=== PATIENT | male | born 1985 | race African-American/Black ===

== ENCOUNTER 2020-07-05 10:44 | Emergency (ER) | payer OTHER, SELFPAY ==
--- NOTE | ~2020-07-05 | XR_ITS ---
EXAMINATION: XR thoracic spine 3V DATE: 07/05/2020 13:21 INDICATION: Back pain TECHNIQUE: AP, lateral and lateral swimmer's views of the thoracic spine were obtained. COMPARISON: None. FINDINGS: There is no fracture, dislocation, or subluxation. The vertebral body heights, alignment, a nd intervertebral disc spaces are normal. The paravertebral soft tissues are unremarkable. IMPRESSION: 1. No acute osseous abnormality. Reviewed, dictated and finalized at location A. [facility]
[2020-07-05 10:54] VITALS: BP 164/91; PULSE 76; RESP 16; TEMP 37.1; O2SAT 100
[2020-07-05] MEDS: KETOROLAC 30 MG/ML VIAL (*BKC) IM (13:29)
--- NOTE | 2020-07-05 13:55 | ED.GENADULT ---
HPI - General Adult General Chief complaint: Neck Pain/Injury Stated complaint: neck pain Time Seen by Provider: 07/05/20 11:29 Source: patient Mode of arrival: ambulatory Limitations: no limitations History of Present Illness HPI narrative: Patient presents with intensified upper thoracic back pain that has been intermittent since January 2020. Patient states he has not been evaluated by his primary care regarding the discomfort as it has not been as intense as it is today. Patient denies any initial injury that he can recall other than feeling as if he slept wrong 1 day. Patient states at times the discomfort resolves whenever he presents. Patient reports feeling tightness and cramping from his upper thoracic area down to his shoulder blades. He denies any loss of strength or range of motion in his extremities. He denies any loss range of motion to his neck, fever, chills, nausea, vomiting or any other symptoms. Related Data Allergies Allergy/AdvReac Type Severity Reaction Status Date / Time No Known Allergies Allergy Verified 07/05/20 11:13 Review of Systems Review of Systems: Narrative: CONSTITUTIONAL: Denies fever, chills, or sweats. EYES: Denies visual changes, redness, or discharge. ENT: Denies rhinorrhea, congestion, sore throat, or otalgia. CARDIOVASCULAR: Denies chest pain, palpitations, or edema. RESPIRATORY: Denies cough or dyspnea. GASTROINTESTINAL: Denies abdominal pain, nausea, vomiting, or diarrhea. GENITOURINARY: Denies dysuria or hematuria. SKIN: Denies rash or itching. MUSCULOSKELETAL: Reports thoracic pain denies joint pain, or myalgia. NEUROLOGIC: Denies headache, numbness, dizziness, or weakness. PSYCHIATRIC: Denies anxiety or depression. [facility] Social History Social History Gender identity (if verbalized by the patient): Male Exam Narrative: Exam Narrative: GENERAL: Well-appearing, well-nourished, and in no acute distress. HEAD: Normocephalic, atraumatic. EYES: PERRLA and EOMI. NECK: Supple. No adenopathy or masses. Motion intact without rigidity. CHEST: Clear to auscultation. No respiratory distress. No wheezes rales or rhonchi HEART: Regular rate and rhythm. Normal peripheral pulses. BACK: No vertebral point tenderness to cervical spine. There is some diffuse tenderness over thoracic area which extends to the parathoracic muscles which Go over the bilateral scapulas. EXTREMITIES: Normal range of motion. No edema. Sensation intact. SKIN: Warm, dry, no rash. NEURO: No focal deficits. Alert and oriented x3. PSYCH: Normal mood and affect. Course Vital Signs Vital signs: Vital Signs Temperature 98.7 F 07/05/20 10:54 Pulse Rate 76 07/05/20 10:54 Respiratory Rate 16 07/05/20 10:54 Blood Pressure 164/91 H 07/05/20 10:54 Pulse Oximetry 100 07/05/20 10:54 Temperature 98.7 F 07/05/20 10:54 Pulse Rate 76 07/05/20 10:54 Respiratory Rate 16 07/05/20 10:54 Blood Pressure 164/91 H 07/05/20 10:54 Pulse Oximetry 100 07/05/20 10:54 Medical Decision Making MDM Narrative Medical decision making narrative: There is no sign of neurological deficits or abnormalities on patient's x-ray. I have discussed the patient needs to follow-up with his primary care. He will be prescribed anti-inflammatory and muscle relaxant. Patient has been instructed to follow-up with his primary care for further investigation if symptoms persist as physical therapy or MRI may be indicated for further investigation into his symptoms. Patient verbalized understanding and agreement with plan denies any other questions or concerns at this time. Differential Diagnosis Differential Diagnosis: Fracture, strain, sprain, nerve impingement Vital Signs Vital Signs: Vital Signs Temperature 98.7 F 07/05/20 10:54 Pulse Rate 76 07/05/20 10:54 Respiratory Rate 16 07/05/20 10:54 Blood Pressure 164/91 H 07/05/20 10:54 Pulse Oximetry 100 07/05/20 10:54 Temperature 98.7 F 07/05/20 10
[2020-07-05 14:09] VITALS: BP 154/74; PULSE 74; RESP 18; O2SAT 99
== END 2020-07-05 14:11 | disposition home or self-care (01) ==
PROVIDERS: Emergency Provider Emergency Medicine
DX: S29.019A Strain of muscle and tendon of unspecified wall of thorax, initial encounter (principal); X58.XXXA Exposure to other specified factors, initial encounter
CPT/HCPCS: 72072; 96372; 99283; J1885

== ENCOUNTER 2021-02-14 18:04 | Emergency (ER) | payer OTHER, SELFPAY ==
--- NOTE | ~2021-02-14 | XR_ITS ---
XR chest 1V DATE: 02/14/2021 18:33 INDICATION: Shortness of breath. Covid-positive. TECHNIQUE: PA chest COMPARISON: None FINDINGS: There are patchy infiltrates in the mid and particularly lower lung zones. Normal heart size. No hilar or mediastinal enlargement. No pleural effusion or pulmonary vascular con gestion or pneumothorax. Included skeletal structures are normal. IMPRESSION: Patchy bilateral lower lung zone infiltrates. Consider bilateral pneumonia, aspiration pn eumonitis Reviewed, dictated and finalized at location A. IMPRESSION: Patchy bilateral lower lung zone infiltrates. Consider bilateral pn eumonia, aspiration pneumonitis
--- NOTE | 2021-02-14 18:09 | ECG_ITS ---
Measurements Intervals [place] Rate: 106 P: 55 [place]: 148 QRS: 76 QRSD: 79 T: 78 QT: 303 QTc: 403 Interpretive Statements SINUS TACHYCARDIA BASELINE WANDER- AVR, AVL, AVF, V1-V2 ABNORMAL ECG Electronically Signed On 02-14-2021 20:18:42 CDT by Keyon Natarajan D.O.
[2021-02-14 18:10] VITALS: BP 133/78; PULSE 119; RESP 20; TEMP 37.4; O2SAT 96
[2021-02-14 18:47] LABS: Basophils Percent Auto 0.4 % (0.2-1.2); Hematocrit 45.6 % (42.0-52.0); Hemoglobin 14.9 g/dL (14.0-18.0); Immature Granulocyte Absolute 0.02 K/mm3 (0.00-0.031); Immature Granulocyte Percent A 0.4 % (0-0.5); Lymphocytes Absolute Auto 1.05 K/mm3 (0.9-3.2); Lymphocytes Percent Auto 23.3 % (18.3-44.2); Mean Corpuscular HGB Conc 32.7 g/dl (32-36); Mean Corpuscular Hemoglobin 29.2 pg (26-34); Mean Corpuscular Volume 89.4 fl (80-100); Mean Platelet Volume 10.6 fl (7.4-10.4); Monocytes Absolute Auto 0.4 K/mm3 (0.1-0.6); Monocytes Percent Auto 9.1 % (2.6-8.5); Neutrophils Percent Auto 66.8 % (45.5-73.1); Platelet Count Result 229 k/mm3 (150-375); Red Cell Distribution Width 13.5 % (11.5-14.5); White Blood Count 4.5 K/mm3 (4.5-10.0)
[2021-02-14 19:00] LABS: Anion Gap 11 mmol/L (8-16); Blood Urea Nitrogen 11 mg/dL (9-20); Calcium 8.7 mg/dL (8.4-10.2); Carbon Dioxide 23 mmol/L (22-30); Chloride 103 mmol/L (98-107); Estimated CRCL calculation 107 ml/min; Estimated Glomerular Filt Rate > 60; Glucose 113 mg/dL (65-110); Sodium 137 mmol/L (137-145)
[2021-02-14 19:13] LABS: D Dimer 0.36 ug/mL (<0.48)
[2021-02-14 20:53] VITALS: TEMP 39.4
[2021-02-14 21:08] VITALS: O2SAT 98
--- NOTE | 2021-02-14 22:06 | ED.SOB ---
HPI - SOB/Dyspnea General Chief Complaint: Shortness of Breath/Dyspnea Stated Complaint: COVID + 02/10/21/Sob Time Seen by Provider: 02/14/21 21:05 Source: patient Mode of arrival: ambulatory Limitations: no limitations History of Present Illness HPI Narrative: Patient is a 36-year-old male complaining of shortness of breath, cough, body aches, chills that started 4 days ago. Patient states that he tested positive for Covid on 02/10/2021. Patient states that he is unvaccinated. Patient denies any chest pain, abdominal pain, nausea, vomiting or diarrhea. Related Data Allergies Allergy/AdvReac Type Severity Reaction Status Date / Time No Known Allergies Allergy Verified 02/14/21 21:09 Review of Systems Review of Systems: All systems reviewed & are unremarkable except as noted in HPI and below Constitutional: Constitutional: Denies excessive sweating, Denies fatigue, Denies headache(s), Denies lethargy, Denies malaise, Denies weakness and Denies weight loss Eyes: Eyes: Denies blurry vision, Denies change in vision and Denies loss of vision ENT: Denies dizziness, Denies ear discharge, Denies headache(s), Denies lip swelling, Denies epistaxis, Denies nasal congestion, Denies neck pain, Denies throat swelling and Denies tongue swelling Cardiovascular: Cardiovascular: Denies chest pain, Denies chest pain at rest, Denies chest pain with activity, Denies diaphoresis, Denies rapid heart rate, Denies edema, Denies irregular heart rhythm, Denies lightheadedness and Denies palpitations Respiratory: Respiratory: Denies chest congestion and Denies hemoptysis Gastrointestinal: Gastrointestinal: Denies abdominal pain, Denies melena, Denies hematochezia, Denies diarrhea, Denies nausea, Denies vomiting and Denies hematemesis Musculoskeletal: Musculoskeletal: Denies abnormal gait, Denies deformity, Denies joint swelling, Denies limited range of motion, Denies neck pain and Denies numbness Neurologic: Denies Abnormal speech present, Denies abnormal gait, Denies confusion, Denies dizziness, Denies headache(s), Denies focal weakness, Denies loss of vision, Denies numbness, Denies Other visual disturbances, Denies Sensory deficit (Neuro) and Denies weakness Psychiatric: Psychiatric: Denies confusion, Denies depression, Denies auditory hallucinations, Denies homicidal ideation and Denies suicidal ideation Endocrine: Endocrine: Denies cold intolerance, Denies excessive sweating, Denies fatigue, Denies heat intolerance and Denies palpitations Hematologic/Lymphatic: Hematologic/Lymphatic: Denies easy bleeding and Denies easy bruising Allergic/Immunologic: Allergic/Immunologic: Denies lip swelling, Denies throat swelling and Denies tongue swelling PMF Social History Social History Gender identity (if verbalized by the patient): Male Comments Past medical history: None Family history: Noncontributory Social history: Non-smoker no EtOH or drug use Exam Const: General: cooperative, healthy appearing, comfortable, no acute distress, well developed, alert and awake; No confusion Orientation/consciousness: oriented to person, oriented to place, oriented to time, patient oriented x3 and No confusion Limitations: no limitations HENMT: Head: normal to inspection, normocephalic and atraumatic Ears: hearing grossly normal bilaterally, TM normal on the right and TM normal on the left General nose exam: Normal external nose present, Normal nares present and No nasal discharge present Face and sinus: normal facial exam Mouth: Yes Normal oral and palatal mucosa present, Yes lip normal, Yes tongue normal and Yes oropharynx normal Throat: posterior oropharynx normal, tonsils normal and uvula midline Eyes: General: appearance normal, both eyes and all related structures Pupils: Equal, round and reactive pupils present EOM: EOMs intact bilaterally Neck: Neck: normal visual inspection, full ROM, no lymphadenopathy and no meningeal signs Chest: Chest palpatio
[2021-02-14 22:26] VITALS: BP 175/113; PULSE 98; RESP 20; O2SAT 97
--- NOTE | 2021-02-15 00:05 | PC.NURSE ---
tried to make contact with Dr. Cedillo. voicemail box is full. will keep trying.
[2021-02-15 00:22] LABS: Lactic Acid Reflex 0.9 mmol/L (0.7-2.1)
[2021-02-15 00:53] VITALS: PULSE 103; RESP 18; O2SAT 96
[2021-02-15] MEDS: IPRATROPIUM BR 0.02% INH SOLN 0.5 MG/2.5 ML VIAL INHALATION (01:07)
[2021-02-15] MEDS: ALBUTEROL SULFATE NEB 2.5 MG/0.5 ML INH 5 MG INHALATION (01:07)
[2021-02-15 02:03] VITALS: BP 136/83; PULSE 101; RESP 18; O2SAT 96
== END 2021-02-15 02:06 | disposition home or self-care (01) ==
PROVIDERS: Emergency Medicine; Emergency Provider Emergency Medicine
DX: J18.9 Pneumonia, unspecified organism (principal); R00.0 Tachycardia, unspecified
CPT/HCPCS: 36415; 71045; 80048; 83605; 85025; 85380; 87040; 87077; 87186; 93005; 94640; 96365; 96367; 96374; 99284; J0456; J0696; J1100

== ENCOUNTER 2021-02-17 12:34 | Inpatient (IN) | payer OTHER, SELFPAY ==
[2021-02-17] VITALS (15 sets, daily range): BP systolic 103–141; BP diastolic 47–82; PULSE 73–115; RESP 20–28; TEMP 36.6–39.3; O2SAT 94–100; BMI 44.2
--- NOTE | ~2021-02-17 | XR_ITS ---
EXAMINATION: XR chest 1V portable EXAM DATE: 02/21/2021 12:07 INDICATION: COVID pneumonia. Productive clinical cough. TECHNIQUE: Portable AP frontal chest x-ray was obtained. Comparison is made to prior examination from 02/17, 02/14. FINDINGS: There is moderate amount of bilateral ill-defined acute airspace disease, appearance consis tent with COVID pneumonia. This appears slightly improved compared to 02/17. No pneumothorax or pleura l effusion. Cardiomediastinal silhouette is normal. There are no osseous abnormalities identified. Impression: bilateral COVID pneumonia, mild improvement compared to most recent prior study. Reviewed, dictated and finalized at location B. Impression: bilateral COVID pneumonia, mild improvement compared to most recent prior study.
--- NOTE | ~2021-02-17 | XR_ITS ---
EXAMINATION: XR chest 1V portable EXAM DATE: 02/17/2021 12:51 INDICATION: COVID. Chest pain and shortness of breath.. TECHNIQUE: Portable AP frontal chest x-ray was obtained. Comparison is made to prior examination from 02/14. FINDINGS: Significant interval progression in moderate amount of mid and lower lung zone acute airspa ce disease consistent with COVID pneumonia. Cardiomediastinal silhouette is normal. There is no pneu mothorax suspected. There are no pleural effusions. IMPRESSION: Worsening airspace disease likely COVID pneumonia. Reviewed, dictated and finalized at location A.
--- NOTE | ~2021-02-17 | CT_ITS ---
EXAMINATION: CTA chest PE protocol EXAM DATE: 02/17/2021 14:41 INDICATION: Cough and shortness of breath. TECHNIQUE: Spiral CTA of the chest (pulmonary arteries) was performed with 100 cc Omnipaque 350 intr avenous contrast injection. Images were acquired during the pulmonary arterial phase. Coronal maxi mum intensity projection 3D-reconstructions were created by the technologist on dedicated workstation . Axial, coronal and sagittal reformatted images were reviewed. The dose-length product (DLP) for t his examination was 1004.51 mGy-cm. The exposure was tailored according to patient size (auto mA ex posure control), and iterative reconstruction (ASIR) was used as additional dose reduction technique. Correlation is made to chest x-ray earlier same date. FINDINGS: Pulmonary arteries are well opacified and without intraluminal filling defects. No thora cic aortic dissection. Diffuse bilateral groundglass airspace disease consistent with COVID pneumoni a. There are no pleural or pericardial effusions. Tracheobronchial tree is patent. There is no m ediastinal, hilar or axillary lymphadenopathy. There is no pneumothorax. Heart normal in size. No evidence of coronary arterial calcification. Upper abdomen is unremarkable. There is thoracic s pondylosis without osteoblastic or osteolytic lesions identified. IMPRESSION: 1. Diffuse COVID pneumonia. 2. No pulmonary emboli. Reviewed, dictated and finalized at location A.
--- NOTE | 2021-02-17 12:41 | ECG_ITS ---
Measurements Intervals [place] Rate: 111 P: 62 [place]: 140 QRS: 81 QRSD: 85 T: -11 QT: 292 QTc: 397 Interpretive Statements SINUS TACHYCARDIA ST ELEVATION IN ANTEROLAT/HIGH LAT LEADS, PROBABLY EARLY REPOLARIZATION NONSPECIFIC ST & T-WAVE ABNORMALITY- INFERIOR LEADS BASELINE ARTIFACT- I, II, III, AVR, AVL, AVF, V1-V6 ABNORMAL ECG Electronically Signed On 02-17-2021 13:05:46 CDT by Keyno Natarajan D.O.
--- NOTE | 2021-02-17 13:15 | ED.SOB ---
HPI - SOB/Dyspnea General Chief Complaint: Shortness of Breath/Dyspnea Stated Complaint: SOB Time Seen by Provider: 02/17/21 12:38 Source: patient Mode of arrival: EMS Limitations: no limitations History of Present Illness HPI Narrative: Patient is a 36-year-old male complaining of worsening shortness of breath that started 3 to 4 days ago. Patient was diagnosed with Covid 1 week ago. Patient was seen here 3 days ago for shortness of breath at that time his oxygen saturation was between 96 to 98% on room air was given Decadron IV x1 and DuoNeb felt better was discharged home. Patient states that his shortness of breath is worse today, called EMS, oxygen saturation upon arrival was 80% on room air was placed on 6 L to 99%. Patient states that he has not been vaccinated. Related Data Home Medications Medication Instructions Recorded Confirmed No Home Medications 02/17/21 02/17/21 Allergies Allergy/AdvReac Type Severity Reaction Status Date / Time No Known Allergies Allergy Verified 02/17/21 12:40 Review of Systems Review of Systems: All systems reviewed & are unremarkable except as noted in HPI and below Constitutional: Constitutional: Denies chills, Denies excessive sweating, Denies fatigue, Denies fever(s), Denies headache(s), Denies lethargy, Denies weakness and Denies weight loss Eyes: Eyes: Denies blurry vision, Denies change in vision and Denies loss of vision ENT: Denies dizziness, Denies ear discharge, Denies headache(s), Denies lip swelling, Denies epistaxis, Denies nasal congestion, Denies neck pain, Denies throat swelling and Denies tongue swelling Cardiovascular: Cardiovascular: Denies chest pain, Denies chest pain at rest, Denies chest pain with activity, Denies diaphoresis, Denies rapid heart rate, Denies edema, Denies irregular heart rhythm, Denies lightheadedness, Denies palpitations, Denies dyspnea and Denies dyspnea on exertion Respiratory: Respiratory: Denies chest congestion and Denies hemoptysis Gastrointestinal: Gastrointestinal: Denies abdominal pain, Denies melena, Denies hematochezia, Denies diarrhea, Denies nausea, Denies vomiting and Denies hematemesis Musculoskeletal: Musculoskeletal: Denies abnormal gait, Denies deformity, Denies joint swelling, Denies limited range of motion, Denies neck pain and Denies numbness Neurologic: Denies Abnormal speech present, Denies abnormal gait, Denies confusion, Denies dizziness, Denies headache(s), Denies focal weakness, Denies loss of vision, Denies numbness, Denies Other visual disturbances, Denies Sensory deficit (Neuro) and Denies weakness Psychiatric: Psychiatric: Denies confusion, Denies depression, Denies auditory hallucinations, Denies homicidal ideation and Denies suicidal ideation Endocrine: Endocrine: Denies cold intolerance, Denies excessive sweating, Denies fatigue, Denies heat intolerance and Denies palpitations Hematologic/Lymphatic: Hematologic/Lymphatic: Denies easy bleeding and Denies easy bruising Allergic/Immunologic: Allergic/Immunologic: Denies lip swelling, Denies throat swelling and Denies tongue swelling PMF Social History Social History Gender identity (if verbalized by the patient): Male Comments Past medical history: None Family history: Noncontributory Social history: Non-smoker no EtOH or drug use Exam Const: General: cooperative, healthy appearing, comfortable, no acute distress, well developed, alert and awake; No confusion Orientation/consciousness: oriented to person, oriented to place, oriented to time, patient oriented x3 and No confusion Limitations: no limitations Other: Moderate distress, obese, ill-appearing HENMT: Head: normal to inspection, normocephalic and atraumatic Ears: hearing grossly normal bilaterally, TM normal on the right and TM normal on the left General nose exam: Normal external nose present, Normal nares present and No nasal discharg
[2021-02-17 13:23] LABS: Basophils Percent Auto 0.2 % (0.2-1.2); Hematocrit 44.9 % (42.0-52.0); Hemoglobin 14.7 g/dL (14.0-18.0); Immature Granulocyte Absolute 0.04 K/mm3 (0.00-0.031); Immature Granulocyte Percent A 0.6 % (0-0.5); Lymphocytes Absolute Auto 0.55 K/mm3 (0.9-3.2); Lymphocytes Percent Auto 8.8 % (18.3-44.2); Mean Corpuscular HGB Conc 32.7 g/dl (32-36); Mean Corpuscular Hemoglobin 29.5 pg (26-34); Mean Platelet Volume 10.7 fl (7.4-10.4); Monocytes Absolute Auto 0.2 K/mm3 (0.1-0.6); Monocytes Percent Auto 2.9 % (2.6-8.5); Neutrophils Absolute Auto 5.5 K/mm3 (1.3-6.7); Neutrophils Percent Auto 87.5 % (45.5-73.1); Platelet Count Result 222 k/mm3 (150-375); Red Blood Count 4.99 M/mm3 (4.6-6.20); Red Cell Distribution Width 13.8 % (11.5-14.5); White Blood Count 6.3 K/mm3 (4.5-10.0)
--- NOTE | 2021-02-17 13:51 | PC.NURSE ---
Pt satting 98% on two liters, this nurse notified MD and received verbal orders to not decrease oxygen below 2lpm.
[2021-02-17 13:54] LABS: Alanine Aminotransferase 28 U/L (4-50); Albumin Level 4.7 g/dL (3.5-5.1); Alkaline Phosphatase 40 U/L (38-126); Anion Gap 10 mmol/L (8-16); Aspartate Amino Transferase 50 U/L (17-59); Bilirubin,Total 0.6 mg/dL (0.2-1.3); Blood Urea Nitrogen 10 mg/dL (9-20); Calcium 8.8 mg/dL (8.4-10.2); Carbon Dioxide 28 mmol/L (22-30); Chloride 95 mmol/L (98-107); Estimated CRCL calculation 105 ml/min; Estimated Glomerular Filt Rate > 60; Glucose 131 mg/dL (65-110); Potassium 4.2 mmol/L (3.4-5.0); Sodium 133 mmol/L (137-145)
[2021-02-17 14:03] LABS: Prothrombin Time 13.1 Seconds (11.1-14.7)
[2021-02-17 14:04] LABS: Partial Thromboplastin Time 33.8 SECONDS (22.3-36.8)
[2021-02-17 14:06] LABS: D Dimer 0.59 ug/mL (<0.48)
[2021-02-17] MEDS: REMDESIVIR 200 MG/NS 250 ML 200 MG/250 ML BAG 250 MG IVPB (15:00)
[2021-02-17] MEDS: ACETAMINOPHEN 500 MG TABLET 1000 MG PO (17:05)
--- NOTE | 2021-02-17 17:35 | PC.NURSE ---
This patient, Minesh Ibarra Jr., was admitted to IMU Room 204-01. Patient/family oriented to hospital policies and general routines including ID bracelet, bed and alarms, visiting hours, pain management, procedures, bathroom and other care routines, personal items, smoking policy, room service/diet, and visiting hours. Information on how to activate the Rapid Response Team has been discussed. Patient/Family are encouraged to report perceived risks to care and to ask questions if they do not understand what they are told or what they should do.
[2021-02-17] MEDS: LACTATED RINGERS 1,000 ML 125 ML IV CONT (17:47)
--- NOTE | 2021-02-17 18:59 | PM.IMHP ---
H&P: HPI History of Present Illness Date/Time: 02/17/21 18:59 this is a 36-year-old male patient with no past medical history. The patient was diagnosed with COVID-19 1 week ago. His whole family and his coworkers also have it. The patient stated that he had a T-max of 103.7? for several days. The patient has been taking Tylenol to control the temperature. He also has body aches and a cough. The patient was seen in the emergency room on 02/15/2021 and was given IV Decadron at that time. His O2 saturations were between 96 and 98% on room air at that time and he felt better and was able to be discharged at that time. However today the patient has been increasingly more short of breath and his oxygen level was found to be 80% on room air when EMS was activated. The patient was placed on 6 L per nasal cannula and was satting 99% on the 6 L. Since then the patient has been decreased to 2 L. the patient has not been vaccinated for COVID-19. The patient was started on IV fluids, Decadron and REM does severe in the emergency room. The patient is being admitted to inpatient services on the date of service of 02/17/2021. Chief Complaint: Shortness of breath Review of Systems Review of Systems: All systems reviewed & are unremarkable except as noted in HPI and below Constitutional: Constitutional: Reports as per HPI and Reports no additional constitutional complaints Eyes: Eyes: Reports as per HPI and Reports no additional eye complaints ENT: Reports system reviewed and no additional complaints, except as documented and Reports Normal hearing present Cardiovascular: Cardiovascular: Reports no additional cardiovascular complaints Respiratory: Respiratory: Reports no additional respiratory complaints and Reports no additional respiratory complaints Gastrointestinal: Gastrointestinal: Reports as per HPI and Reports no additional gastrointestinal complaints Musculoskeletal: Musculoskeletal: Reports no additional musculoskeletal complaints Integumentary/Breasts: Skin/Breast: Reports system reviewed and no additional complaints, except as docu and Reports as per HPI Neurologic: Reports system reviewed and no additional complaints, except as documented, Reports as per HPI and Reports Normal hearing present Psychiatric: Psychiatric: Reports no additional psychiatric complaints and Reports as per HPI Endocrine: Endocrine: Reports no additional endocrine complaints Hematologic/Lymphatic: Hematologic/Lymphatic: Reports no additional hematologic/lymphatic complaints Allergic/Immunologic: Allergic/Immunologic: Reports no additional allergic/immunologic complaints PMFSH Surgical History Surgical History (Updated 02/17/21 @ 19:05 by Lorrie Roth NP) No pertinent past surgical history Family History Family History (Updated 02/17/21 @ 19:05 by Lorrie Roth NP) Unknown Unknown family medical history Social History Social History (Updated 02/17/21 @ 19:06 by Lorrie Roth NP) Social History: The patient lives with his and 3 children. 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 The patient desires to be a full code. The patient works at [employer]. He is a lifelong nonsmoker and does not use any alcohol marijuana or illicit drugs. Smoking status: Never smoker Alcohol intake: never Substance use: never Gender identity (if verbalized by the patient): Male Spiritual care concerns: No Meds Home Medications and Allergies Home Medications Medication Instructions Recorded Confirmed Type No Home Medications 02/17/21 02/17/21 History Allergies Allergy/AdvReac Type Severity Reaction Status Date / Time No Known Allergies Allergy Verified 02/17/21 18:05 Vital Signs Vital Signs - 24 hr 02/17/21 12:33 02/17/21 12:47 02/17/21 12:50 Temperature 37.8 C H Pulse Rate 114 H 115 H 114 H Respiratory Rate 28 H 28 H Blood Pressure 128/76 135/77 Pulse Oximetry
[2021-02-17 19:37] LABS: Prothrombin Time 12.9 Seconds (11.1-14.7)
[2021-02-17 19:40] LABS: Alanine Aminotransferase 24 U/L (4-50); Estimated CRCL calculation 127 ml/min; Estimated Glomerular Filt Rate > 60
[2021-02-18] VITALS (18 sets, daily range): BP systolic 115–144; BP diastolic 51–77; PULSE 75–100; RESP 20–22; TEMP 35.6–37.2; O2SAT 92–98
[2021-02-18 05:18] LABS: Basophils Percent Auto 0.2 % (0.2-1.2); Hematocrit 42.8 % (42.0-52.0); Hemoglobin 13.8 g/dL (14.0-18.0); Immature Granulocyte Absolute 0.01 K/mm3 (0.00-0.031); Immature Granulocyte Percent A 0.2 % (0-0.5); Lymphocytes Absolute Auto 0.49 K/mm3 (0.9-3.2); Lymphocytes Percent Auto 10.8 % (18.3-44.2); Mean Corpuscular HGB Conc 32.2 g/dl (32-36); Mean Corpuscular Hemoglobin 28.9 pg (26-34); Mean Corpuscular Volume 89.5 fl (80-100); Mean Platelet Volume 11.2 fl (7.4-10.4); Monocytes Absolute Auto 0.3 K/mm3 (0.1-0.6); Monocytes Percent Auto 5.5 % (2.6-8.5); Neutrophils Absolute Auto 3.8 K/mm3 (1.3-6.7); Neutrophils Percent Auto 83.3 % (45.5-73.1); Platelet Count Result 251 k/mm3 (150-375); Red Blood Count 4.78 M/mm3 (4.6-6.20); Red Cell Distribution Width 13.7 % (11.5-14.5); White Blood Count 4.5 K/mm3 (4.5-10.0)
[2021-02-18 05:20] LABS: Alanine Aminotransferase 23 U/L (4-50); Albumin Level 4.1 g/dL (3.5-5.1); Alkaline Phosphatase 38 U/L (38-126); Anion Gap 10 mmol/L (8-16); Aspartate Amino Transferase 39 U/L (17-59); Bilirubin,Total 0.6 mg/dL (0.2-1.3); Blood Urea Nitrogen 15 mg/dL (9-20); Calcium 8.4 mg/dL (8.4-10.2); Carbon Dioxide 24 mmol/L (22-30); Chloride 101 mmol/L (98-107); Estimated CRCL calculation 139 ml/min; Estimated Glomerular Filt Rate > 60; Glucose 132 mg/dL (65-110); Lactate Dehydrogenase 959 U/L (313-618); Magnesium 2.3 mg/dL (1.6-2.3); Potassium 4.4 mmol/L (3.4-5.0); Sodium 135 mmol/L (137-145)
[2021-02-18 05:21] LABS: Lactic Acid Reflex 1.2 mmol/L (0.7-2.1)
--- NOTE | 2021-02-18 08:52 | PM.IMPN ---
Progress Note: A&P Assessment and Plan (1) Pneumonia due to COVID-19 virus: Code(s): U07.1 - COVID-19; J12.82 - Pneumonia due to coronavirus disease 2019 Status: Acute (2) Acute respiratory failure with hypoxia: Code(s): J96.01 - Acute respiratory failure with hypoxia Status: Acute Additional Plan 02/17/21 DC his IV fluids. Continue with REMdesivir and Decadron. The patient is on 2 L per nasal cannula oxygen at this time. I explained to the patient that he needs to lay on his abdomen as much as possible. Continue with Tylenol for fever or pain. Patient's temperature is 39.3? C.. Continue with Robitussin. Albuterol inhaler. Continue with supplemental oxygen. He is currently on oxygen at 2 L per nasal cannula. Continue with treatment for COVID-19. Encouraged the patient to lay on his abdomen is much as possible. 02/18/21 Patient ill-appearing, pt unvaccinated COVID protocol day 2/ Vit C / Vit D / Zn O2 3L Dexamethasone increased to 6 mg IV b.i.d. PPI added while on steroid therapy Patient with poor appetite supplemental drinks provided Self proning encouraged Vital signs q.4 hours Patient high risk for decompensation Subjective Date/time seen: 02/18/21 08:52 Patient reports feeling unwell, mild shortness of breath with speaking, however, improved since admission Exam Narrative: GEN: NAD, AAOx3, cooperative ill appearing HEENT: NCAT, MMM, EOMI Neck: no JVD Heart: S1S2 RRR Lungs: dyspneic w speaking no use of accessory muscles Abd: soft, NT, ND, bowel sounds normoactive Ext: moves all, no cyanosis, no clubbing, no edema Neuro: no focal neurological deficits Psych: mood reduced, affect congruent flattened, poor eye contact Objective Data Vital Signs Vital Signs: Vital Signs - 24 hr 02/17/21 12:33 02/17/21 12:47 02/17/21 12:50 Temperature 100.1 F H Pulse Rate 114 H 115 H 114 H Respiratory Rate 28 H 28 H Blood Pressure 128/76 135/77 Pulse Oximetry 100 100 02/17/21 13:08 02/17/21 13:59 02/17/21 14:02 Temperature Pulse Rate 106 H 110 H Respiratory Rate 25 H 23 H Blood Pressure 133/68 125/64 Pulse Oximetry 98 97 96 02/17/21 14:17 02/17/21 16:55 02/17/21 17:25 Temperature 101.6 F H Pulse Rate 104 H 104 H Respiratory Rate 20 Blood Pressure 135/74 136/82 Pulse Oximetry 97 100 100 02/17/21 17:35 02/17/21 17:52 02/17/21 18:00 Temperature 102.7 F H 102.7 F H Pulse Rate 107 H 103 H Respiratory Rate 20 Blood Pressure 103/78 Pulse Oximetry 94 02/17/21 20:00 02/17/21 22:00 02/17/21 23:51 Temperature 98.5 F 98 F Pulse Rate 86 77 84 Respiratory Rate 24 H 20 Blood Pressure 120/47 L 141/80 H Pulse Oximetry 96 94 02/18/21 00:00 02/18/21 02:00 02/18/21 04:00 Temperature 98.1 F Pulse Rate 93 89 90 Respiratory Rate 22 H Blood Pressure 115/51 L Pulse Oximetry 94 94 02/18/21 06:00 Temperature Pulse Rate 84 Respiratory Rate Blood Pressure Pulse Oximetry Intake/Output Intake/Output: Intake & Output 02/15/21 02/16/21 02/17/21 02/18/21 23:59 23:59 23:59 23:59 Intake Total 250 Output Total 600 200 Balance -350 -200 Meds/Results Medications: Active Medications Generic Name Dose Route Start Last Admin Trade Name Freq PRN Reason Stop Dose Admin Acetaminophen 1,000 mg 02/17/21 18:56 Acetaminophen 500 Mg Tablet PO Q6H PRN Mild Pain (1-3) or Fever Albuterol 2 puff 02/17/21 19:13 Albuterol Sulfate (*Sp) Aerosol 1 Puff INHALATION Q6HRT PRN Shortness Of Breath Dexamethasone Sodium Phosphate 6 mg 02/18/21 09:00 Dexamethasone Sod Phos Inj 10 Mg/Ml 1 Ml Vial IV PUSH 02/27/21 09:01 DAILY SHILPA Enoxaparin Sodium 40 mg 02/18/21 09:00 Enoxaparin 40 Mg/0.4 Ml Syringe SUB-Q DAILY SHILPA Guaifenesin/Dextromethorphan 10 ml 02/17/21 19:09 Guaifenesin/Dextromethorphan 10 Ml Udc PO Q4H PRN Cough Remdesivir 100 mg in 250 mls @ 250 mls/hr 01/23
[2021-02-18] MEDS: ENOXAPARIN 40 MG/0.4 ML SYRINGE SUB-Q (09:49)
[2021-02-18] MEDS: REMDESIVIR 100 MG/NS 250 ML 100 MG/250 ML BAG 250 MG IVPB (09:49)
[2021-02-18 17:33] LABS: IFOB Positive Control Positive; Immunochemical Fecal Occult Bl Negative (N)
[2021-02-18] MEDS: ASCORBIC ACID 500 MG TABLET 1000 MG PO (17:55)
[2021-02-18] MEDS: ZINC SULFATE 220 MG CAPSULE PO (17:56)
[2021-02-18] MEDS: PANTOPRAZOLE SODIUM IV 40 MG VIAL IV PUSH (17:56)
[2021-02-19] VITALS (14 sets, daily range): BP systolic 128–139; BP diastolic 66–76; PULSE 74–106; RESP 14–22; TEMP 36.6–37.1; O2SAT 90–100
[2021-02-19 05:12] LABS: Prothrombin Time 13.2 Seconds (11.1-14.7)
[2021-02-19 05:22] LABS: Hematocrit 43.2 % (42.0-52.0); Hemoglobin 13.9 g/dL (14.0-18.0); Immature Granulocyte Absolute 0.03 K/mm3 (0.00-0.031); Immature Granulocyte Percent A 0.5 % (0-0.5); Lymphocytes Absolute Auto 0.65 K/mm3 (0.9-3.2); Lymphocytes Percent Auto 9.8 % (18.3-44.2); Mean Corpuscular HGB Conc 32.2 g/dl (32-36); Mean Corpuscular Hemoglobin 28.6 pg (26-34); Mean Corpuscular Volume 88.9 fl (80-100); Mean Platelet Volume 10.9 fl (7.4-10.4); Monocytes Absolute Auto 0.4 K/mm3 (0.1-0.6); Monocytes Percent Auto 6.3 % (2.6-8.5); Neutrophils Absolute Auto 5.6 K/mm3 (1.3-6.7); Neutrophils Percent Auto 83.4 % (45.5-73.1); Platelet Count Result 386 k/mm3 (150-375); Red Blood Count 4.86 M/mm3 (4.6-6.20); Red Cell Distribution Width 13.6 % (11.5-14.5); White Blood Count 6.7 K/mm3 (4.5-10.0)
[2021-02-19 05:26] LABS: Alanine Aminotransferase 21 U/L (4-50); Albumin Level 4.2 g/dL (3.5-5.1); Alkaline Phosphatase 35 U/L (38-126); Anion Gap 11 mmol/L (8-16); Aspartate Amino Transferase 35 U/L (17-59); Bilirubin,Total 0.6 mg/dL (0.2-1.3); Blood Urea Nitrogen 18 mg/dL (9-20); CRP 4.7 mg/dL (<1.0); Calcium 8.8 mg/dL (8.4-10.2); Carbon Dioxide 22 mmol/L (22-30); Chloride 102 mmol/L (98-107); Estimated CRCL calculation 139 ml/min; Estimated Glomerular Filt Rate > 60; Glucose 149 mg/dL (65-110); Lactate Dehydrogenase 967 U/L (313-618); Magnesium 2.6 mg/dL (1.6-2.3); Potassium 4.4 mmol/L (3.4-5.0); Sodium 135 mmol/L (137-145)
[2021-02-19 05:41] LABS: D Dimer 0.27 ug/mL (<0.48)
[2021-02-19] MEDS: ASCORBIC ACID 500 MG TABLET 1000 MG PO ×2 (09:32→18:33)
[2021-02-19] MEDS: CHOLECALCIFEROL 1,000 UNITS TABLET 1000 UNITS PO (09:33)
[2021-02-19] MEDS: PANTOPRAZOLE SODIUM IV 40 MG VIAL IV PUSH (09:33)
[2021-02-19] MEDS: ZINC SULFATE 220 MG CAPSULE PO ×2 (09:33→18:33)
[2021-02-19] MEDS: ENOXAPARIN 40 MG/0.4 ML SYRINGE SUB-Q (09:34)
[2021-02-19] MEDS: REMDESIVIR 100 MG/NS 250 ML 100 MG/250 ML BAG 250 MG IVPB (09:35)
--- NOTE | 2021-02-19 16:47 | PM.IMPN ---
Progress Note: A&P Assessment and Plan (1) Pneumonia due to COVID-19 virus: Code(s): U07.1 - COVID-19; J12.82 - Pneumonia due to coronavirus disease 2019 Status: Acute Assessment and Plan: DC his IV fluids. Continue with REMdesivir and Decadron. The patient is on 2 L per nasal cannula oxygen at this time. I explained to the patient that he needs to lay on his abdomen as much as possible. Continue with Tylenol for fever or pain. Patient's temperature is 39.3? C.. Continue with Robitussin. Albuterol inhaler. (2) Acute respiratory failure with hypoxia: Code(s): J96.01 - Acute respiratory failure with hypoxia Status: Acute Assessment and Plan: Continue with supplemental oxygen. He is currently on oxygen at 2 L per nasal cannula. Continue with treatment for COVID-19. Encouraged the patient to lay on his abdomen is much as possible. Additional Plan 02/17/21 DC his IV fluids. Continue with REMdesivir and Decadron. The patient is on 2 L per nasal cannula oxygen at this time. I explained to the patient that he needs to lay on his abdomen as much as possible. Continue with Tylenol for fever or pain. Patient's temperature is 39.3? C.. Continue with Robitussin. Albuterol inhaler. Continue with supplemental oxygen. He is currently on oxygen at 2 L per nasal cannula. Continue with treatment for COVID-19. Encouraged the patient to lay on his abdomen is much as possible. 02/18/21 Patient ill-appearing, pt unvaccinated COVID protocol day 2/5 Vit C / Vit D / Zn O2 3L Dexamethasone increased to 6 mg IV b.i.d. PPI added while on steroid therapy Patient with poor appetite supplemental drinks provided Self proning encouraged Vital signs q.4 hours Patient high risk for decompensation 02/19/21 pt stable on 4L minimal PO intake but drinking supplemental shakes cont steroids Remdesivir and add Tocilizumab inflamm markers in am encourage self proning and move EKG leads to his back cont current care Subjective Date/time seen: 02/19/21 16:47 pt reports that he can breathe a little better today, would like to go home soon reassured that he will be discharged as soon as medically stable. would like to prone but states that leads on EKG are bothersome. we discuss use of SCDs and that I will order them for him Exam Narrative: GEN: NAD, AAOx3, cooperative ill appearing HEENT: NCAT, MMM, EOMI Neck: no JVD Heart: S1S2 RRR Lungs: poor air movement no use of accessory muscles Abd: soft, NT, ND Ext: moves all, no cyanosis, no clubbing, no edema Neuro: no focal neurological deficits Psych: mood and affect congruent Objective Data Vital Signs Vital Signs: Vital Signs - 24 hr 02/18/21 16:54 02/18/21 17:00 02/18/21 18:00 Temperature 99.0 F Pulse Rate 91 94 Respiratory Rate 20 Blood Pressure 137/72 Pulse Oximetry 92 92 02/18/21 19:27 02/18/21 20:00 02/18/21 22:00 Temperature 98.9 F Pulse Rate 100 87 98 Respiratory Rate 20 Blood Pressure 144/72 H Pulse Oximetry 98 98 02/19/21 00:00 02/19/21 02:00 02/19/21 04:00 Temperature 98.4 F 98.7 F Pulse Rate 76 78 74 Respiratory Rate 20 22 H Blood Pressure 134/66 129/68 Pulse Oximetry 90 93 02/19/21 06:00 02/19/21 08:00 02/19/21 10:00 Temperature 97.8 F Pulse Rate 86 78 84 Respiratory Rate 14 Blood Pressure 128/75 Pulse Oximetry 93 02/19/21 11:44 02/19/21 12:00 02/19/21 14:00 Temperature 98.7 F Pulse Rate 79 76 80 Respiratory Rate 16 Blood Pressure 139/72 Pulse Oximetry 94 93 02/19/21 16:00 Temperature 98.4 F Pulse Rate 86 Respiratory Rate 16 Blood Pressure 132/76 Pulse Oximetry 96 Intake/Output Intake/Output: Intake & Output 02/16/21 02/17/21 02/18/21 02/19/21 23:59 23:59 23:59 23:59 Intake Total 250 1250 490 Output Total 223 269 9116 Balance -350 789 -345 Meds/Results Medications: Active Medications Generic Name Dose Route Start Last Admin Trade Name
[2021-02-20] VITALS (13 sets, daily range): BP systolic 108–140; BP diastolic 59–75; PULSE 64–93; RESP 16–22; TEMP 36.6–37.1; O2SAT 92–95
[2021-02-20 05:24] LABS: Basophils Percent Auto 0.1 % (0.2-1.2); Hematocrit 45.4 % (42.0-52.0); Hemoglobin 14.6 g/dL (14.0-18.0); Immature Granulocyte Absolute 0.03 K/mm3 (0.00-0.031); Immature Granulocyte Percent A 0.4 % (0-0.5); Lymphocytes Absolute Auto 0.61 K/mm3 (0.9-3.2); Lymphocytes Percent Auto 7.6 % (18.3-44.2); Mean Corpuscular HGB Conc 32.2 g/dl (32-36); Mean Corpuscular Hemoglobin 28.9 pg (26-34); Mean Corpuscular Volume 89.9 fl (80-100); Mean Platelet Volume 10.4 fl (7.4-10.4); Monocytes Absolute Auto 0.5 K/mm3 (0.1-0.6); Monocytes Percent Auto 5.7 % (2.6-8.5); Neutrophils Percent Auto 86.2 % (45.5-73.1); Platelet Count Result 473 k/mm3 (150-375); Red Blood Count 5.05 M/mm3 (4.6-6.20); Red Cell Distribution Width 13.9 % (11.5-14.5); White Blood Count 8.1 K/mm3 (4.5-10.0)
[2021-02-20 05:46] LABS: INR 1.1; Prothrombin Time 13.8 Seconds (11.1-14.7)
[2021-02-20 05:48] LABS: Magnesium 2.7 mg/dL (1.6-2.3)
[2021-02-20 07:57] LABS: D Dimer 0.27 ug/mL (<0.48)
[2021-02-20 08:12] LABS: Alanine Aminotransferase 19 U/L (4-50); Estimated CRCL calculation 139 ml/min; Estimated Glomerular Filt Rate > 60
--- NOTE | 2021-02-20 09:04 | PM.IMPN ---
Progress Note: A&P Assessment and Plan (1) Acute respiratory failure with hypoxia: Code(s): J96.01 - Acute respiratory failure with hypoxia Status: Acute Assessment and Plan: Acute respiratory failure with hypoxia related to COVID pneumonia. CT was negative for PE. Patient was initially on 6L transiently but quickly weaned to 2L. He had increasing O2 requirement to 4L on 02/18 but stable since. Encourage patient to lay prone as much as possible. Schedule albuterol. Increase activity. Wean oxygen as tolerated. (2) Pneumonia due to COVID-19 virus: Code(s): U07.1 - COVID-19; J12.82 - Pneumonia due to coronavirus disease 2019 Status: Acute Assessment and Plan: CTA showing COVID PNA but no PE (02/17). Tocilizumab on back order. Continue with Remdesivir Day 4 and Decadron. The patient was on 2 L/min but increased to 4L on 02/18. O2 requirement has been stable since. Again, it was explained to the patient that he needs to lay on his abdomen as much as possible. Fever resolved - Tylenol available prn. Will schedule Albuterol inhaler. Wean O2 as tolerated. Increase activity as tolerated. Check COVID swab to verify diagnosis. No benefit to zinc/Vit C/Vit D so will stop (3) DVT prophylaxis: Code(s): Z29.9 - Encounter for prophylactic measures, unspecified Status: Acute Assessment and Plan: Lovenox Subjective Date/time seen: 02/20/21 09:04 Interval history: 36yo healthy male here for COVID PNA. Patient admitted on 02/17 after being diagnosed with COVID 7 days prior. He is unvaccinated. Assuming care. Chart reviewed. He feels SOB but no change. No CP. No n/.v. Had diarrhea but this is improving. Nml taste but with anosimia. Has bedside commode. Has been lying prone at times. Some pleuritic chest pain component rarely. Exam Narrative: AF 98.8 123/68 81 18 93% 4L Gen - NARD lying semirecumbent in bed Chest - few dry bibasilar inspiratory crackles, nml RR CV - RRR S1/S2; Tele showing no significant dysrhythmias Abd - Soft, NT/ND, Positive BS Ext - No pedal edema Psych - Nml mood and affect Skin - Warm and dry Objective Data Vital Signs Vital Signs: Vital Signs - 24 hr 02/19/21 10:00 02/19/21 11:44 02/19/21 12:00 Temperature 98.7 F Pulse Rate 84 79 76 Respiratory Rate 16 Blood Pressure 139/72 Pulse Oximetry 94 93 02/19/21 14:00 02/19/21 16:00 02/19/21 18:00 Temperature 98.4 F Pulse Rate 80 89 85 Respiratory Rate 16 Blood Pressure 132/76 Pulse Oximetry 91 02/19/21 20:00 02/19/21 22:00 02/19/21 23:46 Temperature 98.2 F Pulse Rate 85 80 Respiratory Rate 18 Blood Pressure 131/69 Pulse Oximetry 94 94 02/20/21 00:00 02/20/21 02:00 02/20/21 04:00 Temperature 98.6 F 98.7 F Pulse Rate 81 69 84 Respiratory Rate 20 22 H Blood Pressure 118/59 L 108/65 Pulse Oximetry 95 92 02/20/21 06:00 02/20/21 08:00 Temperature 98.8 F Pulse Rate 79 81 Respiratory Rate 18 Blood Pressure 123/68 Pulse Oximetry 93 Intake/Output Intake/Output: Intake & Output 02/17/21 02/18/21 02/19/21 02/20/21 23:59 23:59 23:59 23:59 Intake Total 250 1250 610 Output Total 964 487 8035 1050 Balance -350 982 -361 -6122 Meds/Results Medications: Active Medications Generic Name Dose Route Start Last Admin Trade Name Freq PRN Reason Stop Dose Admin Acetaminophen 1,000 mg 02/17/21 18:56 Acetaminophen 500 Mg Tablet PO Q6H PRN Mild Pain (1-3) or Fever Albuterol 2 puff 02/17/21 19:13 Albuterol Sulfate (*Sp) Aerosol 1 Puff INHALATION Q6HRT PRN Shortness Of Breath Ascorbic Acid 1,000 mg 02/18/21 17:00 02/19/21 18:33 Ascorbic Acid 500 Mg Tablet PO 1,000 mg BID SHILPA Administration Dexamethasone Sodium Phosphate 6 mg 02/18/21 17:00 02/19/21 18:33 Dexamethasone Sod Phos Inj 10 Mg/Ml 1 Ml Vial IV PUSH 02/22/21 17:01 6 mg BID SHILPA Administration Enoxaparin Sodium 40 mg
[2021-02-20] MEDS: ENOXAPARIN 40 MG/0.4 ML SYRINGE SUB-Q (10:19)
[2021-02-20] MEDS: REMDESIVIR 100 MG/NS 250 ML 100 MG/250 ML BAG 250 MG IVPB (10:20)
[2021-02-20 12:22] LABS: CRP 6.4 mg/dL (<1.0)
[2021-02-21] VITALS (16 sets, daily range): BP systolic 117–134; BP diastolic 51–70; PULSE 73–109; RESP 18–22; TEMP 36.1–37.1; O2SAT 86–97
[2021-02-21 05:17] LABS: Hematocrit 42.3 % (42.0-52.0); Hemoglobin 13.7 g/dL (14.0-18.0); Mean Corpuscular HGB Conc 32.4 g/dl (32-36); Mean Corpuscular Hemoglobin 28.6 pg (26-34); Mean Corpuscular Volume 88.3 fl (80-100); Mean Platelet Volume 9.8 fl (7.4-10.4); Platelet Count Result 559 k/mm3 (150-375); Red Blood Count 4.79 M/mm3 (4.6-6.20); Red Cell Distribution Width 13.3 % (11.5-14.5)
[2021-02-21 05:39] LABS: Alanine Aminotransferase 27 U/L (4-50); Alkaline Phosphatase 34 U/L (38-126); Anion Gap 10 mmol/L (8-16); Aspartate Amino Transferase 37 U/L (17-59); Bilirubin,Total 0.7 mg/dL (0.2-1.3); Blood Urea Nitrogen 23 mg/dL (9-20); CRP 1.5 mg/dL (<1.0); Calcium 8.9 mg/dL (8.4-10.2); Carbon Dioxide 23 mmol/L (22-30); Chloride 104 mmol/L (98-107); Estimated CRCL calculation 139 ml/min; Estimated Glomerular Filt Rate > 60; Glucose 132 mg/dL (65-110); Potassium 4.3 mmol/L (3.4-5.0); Sodium 137 mmol/L (137-145)
[2021-02-21] MEDS: ALBUTEROL SULFATE (*SP) AEROSOL 1 PUFF 2 PUFF INHALATION ×2 (08:32→13:50)
[2021-02-21 09:44] LABS: INR 1.1; Prothrombin Time 13.6 Seconds (11.1-14.7)
[2021-02-21] MEDS: REMDESIVIR 100 MG/NS 250 ML 100 MG/250 ML BAG 250 MG IVPB (10:12)
[2021-02-21] MEDS: ENOXAPARIN 40 MG/0.4 ML SYRINGE SUB-Q (10:13)
[2021-02-21] MEDS: PANTOPRAZOLE 40 MG TABLET PO (10:14)
--- NOTE | 2021-02-21 14:10 | HOMEO2EVAL ---
Evaluation was performed at [facility] Home Oxygen Evaluation RC: Home Oxygen (O2) Evaluation Start: 02/21/21 11:42 Freq: ONCE Status: Active Protocol: RPE Activity Type Activity Date Activity User E-Sign Co-Sign Detail Recorded Client Recorded Date Recorded By Document 02/21/21 13:30 [email or web address] [email or web address] 02/21/21 14:10 GERI Document 02/21/21 13:35 [email or web address] [email or web address] 02/21/21 14:10 GERI Document 02/21/21 13:36 GERI [id number] 02/21/21 14:10 GERI Document 02/21/21 13:37 GERI [email or web address] 02/21/21 14:10 GERI Document 02/21/21 13:45 GERI [id number] 02/21/21 14:10 [facility] 02/21/21 02/21/21 02/21/21 13:30 13:35 13:36 Home O2 Evaluation Test Phase Resting Exercise Exercise Oxygen Delivery Room Air Room Air Nasal Cannula Oxygen Flow Rate (L/min) 1 Pulse Oximetry (90-100 %) 92 86 L 87 L Pulse Rate (60-100 beats/min) 86 109 H Ambulation Distance (feet) Home Oxygen Evaluation Comments Treatment Charges O2 Evaluation - Inpatient 02/21/21 02/21/21 13:37 13:45 Home O2 Evaluation Test Phase Exercise Resting Oxygen Delivery Nasal Cannula Room Air Oxygen Flow Rate (L/min) 2 Pulse Oximetry (90-100 %) 90 91 Pulse Rate (60-100 beats/min) Ambulation Distance (feet) 140 Home Oxygen Evaluation Comments PT REQUIRES 2 L HOME O2 WITH EXERTION/ ACTIVITY Treatment Charges
--- NOTE | 2021-02-21 15:14 | PM.DS ---
DS: Admitting Diagnosis Admitting Diagnosis SOB DS: Discharge Diagnosis Discharge Diagnosis (1) Acute respiratory failure with hypoxia: Code(s): J96.01 - Acute respiratory failure with hypoxia Status: Acute Assessment and Plan: Patient presents with SOB and found to have acute respiratory failure with hypoxia related to COVID pneumonia. CT was negative for PE. Patient was initially on 6L transiently but quickly weaned to 2L. He then had increasing O2 requirement to 4L on 02/18 but then stabilized with treatment as mentioned below. We encouraged patient to lay prone as much as possible. He had improvement. O2 requirement remained stable. Home O2 evaluation showing he needs 2L/min O2 with activity. (2) Pneumonia due to COVID-19 virus: Code(s): U07.1 - COVID-19; J12.82 - Pneumonia due to coronavirus disease 2019 Status: Acute Assessment and Plan: CTA chest showing COVID PNA but no PE (02/17). Tocilizumab on back order. He completed Remdesivir x 5 days. He was also treated with Decadron. Fever resolved - Tylenol available prn. We scheduled Albuterol inhaler. Able to wean O2 back down to 2L with activity only. Patient states that his whole family ( and 3 children) all have tested positive for COVID. DS: Summary Hospital Course Reason for hospitalization: 36yo healthy male here for COVID PNA. Patient admitted on 02/17 after being diagnosed with COVID. He is unvaccinated. Please see H&P for details. Hospital Course: Please see above for details of hospital course. Status at Discharge Cognitive/behavioral status at discharge: Stable Time Spent with Patient Time attestation: Total time spent providing and/or coordinating discharge services: 34 minutes Time spent: Greater than 30 minutes Exam Narrative: AF 97.0 117/69 109 18 91% Gen - NARD lying semirecumbent in bed Chest - mild basilar crackles, nml RR CV - RRR S1/S2 Abd - Soft, NT/ND, Positive BS Ext - No pedal edema Psych - Nml mood and affect Skin - Warm and dry DS: Data Data Completed and Pending Labs on day of discharge: Labs from last 24 hours 02/21/21 02/21/21 02/21/21 08:17 04:57 04:57 WBC 9.0 RBC 4.79 Hgb 13.7 L Hct 42.3 MCV 88.3 MCH 28.6 MCHC 32.4 RDW 13.3 Plt Count 559 H MPV 9.8 PT 13.6 INR 1.1 Sodium 137 Potassium 4.3 Chloride 104 Carbon Dioxide 23 Anion Gap 10 BUN 23 H Creatinine 0.90 Estim Creat Clear Calc 139 Estimated GFR > 60 Glucose 132 H Calcium 8.9 Total Bilirubin 0.7 AST 37 ALT 27 Alkaline Phosphatase 34 L C-Reactive Protein 1.5 H Total Protein 8.0 Albumin 4.0 Discharge Plan Discharge Attending physician on discharge: Misha Griffith Discharging Clinician: Misha Griffith Anticipated Discharge Date/Time: 02/21/21 15:23 Patient Disposition: Home, Self-Care Activity: as tolerated Diet: heart healthy Discharge Instructions: Please avoid large gathering, wear face coverings in public and practice social distance. Contact your doctor or [facility] 911 and come to the Emergency Room if you have any chest pain, worsening shortness of breath or other worrisome symptoms. You will be sent home with Oxygen: please use Oxygen 2L/min when active such as walking to the bathroom or kitchen. Your doctor will perform a repeat oxygen test to see if you still need the oxygen. Follow-up with your doctor in 1-2 weeks. Please call for appointment. Patient Instructions: Antibiotic Form Stand Alone Forms: General Discharge Information Follow-up/Referrals: Grant,MARLA Llamas [Primary Care Provider] - Call for Appointment Discharge Medications: New dexamethasone 6 mg tablet 6 mg PO DAILY Qty: 5 RF: 0 Continued No Home Medications RF: 0 Date of admission: 02/17/21 15:49 Primary Care Provider: TheoNatalia Admitting Provider: Don
[2021-02-21 19:54] LABS: SARS-CoV-2 RNA PCR Positive
--- NOTE | 2021-02-24 12:59 | PC.NURSE ---
COVID test is positive. Dr. Griffith aware.
--- NOTE | 2021-02-24 13:07 | PC.NURSE ---
COVID test is positive. Dr. Griffith aware. Patient with known infection.
== END 2021-02-21 18:22 | disposition home or self-care (01) | DRG 137 ==
LOC: ANHED 15:54 → ANHIMU 02-18 09:58
PROVIDERS: Nurse Practitioner; Admitting Provider Hospitalist; Emergency Provider Emergency Medicine; PCP Physician Assistant; Visit Provider Internal Medicine
DX: U07.1 COVID-19 (principal); J12.82 Pneumonia due to coronavirus disease 2019; J96.01 Acute respiratory failure with hypoxia
CPT/HCPCS: 36415; 71045; 71275; 80053; 82274; 82565; 83605; 83615; 83735; 84460; 85025; 85027; 85380; 85610; 85730; 86140; 93005; 94618; 94640; 96365; 96375; 99291; A9270; C9113; C9803; J1100; J1650; J7120; Q9967; U0003; U0005

== ENCOUNTER 2021-07-13 23:49 | Emergency (ER) | payer OTHER, SELFPAY ==
--- NOTE | ~2021-07-13 | CT_ITS ---
EXAMINATION: CT abdomen pelvis wo con DATE: 07/14/2021 01:15 INDICATION: Right flank pain, polyuria for 4 days TECHNIQUE: Computed tomography (CT) of the abdomen and pelvis was performed without intravenous contr ast. Automated exposure control and iterative reconstruction technique were employed. Exam dose: 155 7.22 mGy-cm total exam DLP. COMPARISON: None. FINDINGS: Lung bases are clear of consolidation. Normal heart size. No pericardial or pleural effusio n. The liver, gallbladder, bile ducts, spleen, pancreas, pancreatic duct, and adrenal glands and kidneys are unremarkable on this limited noncontrast examination. Normal caliber of the abdominal aorta. No intraperitoneal or retroperitoneal or pelvic mass lesion or adenopathy or ascites. The urinary bladder, prostate gland and sella vesicles are unremarkable. No u rinary tract calculus or hydroureteronephrosis. Normal appendix. No bowel obstruction, bowel wall thickening, pneumatosis or intraperitoneal free air . Small fat-containing left inguinal hernia. Included skeletal structures are unremarkable. IMPRESSION: No urinary tract calculus or hydroureteronephrosis Normal right appendix Reviewed, dictated and finalized at [facility] Reviewed, dictated and finalized at [facility]. [facility] COORDINATOR
--- NOTE | ~2021-07-13 | XR_ITS ---
XR abdomen/kub 1V DATE: 07/14/2021 01:41 INDICATION: Right flank pain since 07/10/2021 TECHNIQUE: AP projection, 2 views COMPARISON: 07/14/[address] abdomen pelvis FINDINGS: No visceromegaly. Associated as are intact. There is no evidence of bowel obstruction. No s ignificant abnormal calcification is evident. IMPRESSION: Negative Reviewed, dictated and finalized at [facility]. Reviewed, dictated and finalized at [facility]. 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
[2021-07-13 23:52] VITALS: BP 175/98; PULSE 80; RESP 19; TEMP 36.9; O2SAT 99
--- NOTE | 2021-07-14 00:50 | ED.BACK ---
HPI - Back Pain/Injury General Chief Complaint: Back Pain/Injury Stated Complaint: R flank pain Time Seen by Provider: 07/14/21 00:40 Source: patient and RN notes reviewed Mode of arrival: ambulatory Limitations: no limitations History of Present Illness HPI Narrative: This is a 36 year old male who presents for evaluation of right flank pain. He developed pain on Saturday. He states his pain has been waxing and waning. He describes location as pain that radiates from his right kidney to his right side. His pain was doing well until tonight. He has not taken anything for pain tonight. He denies associated nausea, vomiting, fever. or hematuria. He reports last night he had frequent urination but denies dysuria. He rates his pain as 8/10. Related Data Allergies Allergy/AdvReac Type Severity Reaction Status Date / Time No Known Allergies Allergy Verified 02/17/21 18:05 Review of Systems Review of Systems: All systems reviewed & are unremarkable except as noted in HPI and below Constitutional: Constitutional: Denies chills and Denies fever(s) Gastrointestinal: Gastrointestinal: Denies abdominal pain, Denies nausea and Denies vomiting Genitourinary: Genitourinary: Denies hematuria, Denies oliguria, Denies genital lesions, Denies penile discharge and Denies testicular pain Musculoskeletal: Musculoskeletal: Reports back pain PMFSH Past Medical History Medical History (Updated 07/14/21 @ 03:06 by Annia Campuzano MD) Patient denies medical problems Surgical History Surgical History (Updated 02/17/21 @ 19:05 by Lorrie Roth NP) No pertinent past surgical history Family History Family History (Updated 02/17/21 @ 19:05 by Lorrie Roth NP) Unknown Unknown family medical history Social History Social History (Updated 02/17/21 @ 19:06 by Lorrie Roth NP) Social History: The patient lives with his and 3 children. 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 The patient desires to be a full code. The patient works at [employer]. He is a lifelong nonsmoker and does not use any alcohol marijuana or illicit drugs. Smoking status: Never smoker Alcohol intake: never Substance use: never Gender identity (if verbalized by the patient): Male Spiritual care concerns: No Exam Const: General: no acute distress and alert Nutritional Appearance: obese Orientation/consciousness: patient oriented x3 Eyes: EOM: EOMs intact bilaterally Resp: Effort & Inspection: normal respiratory effort and no retractions Auscultation: clear to auscultation bilaterally Cardio: Rate: regular rate Rhythm: regular rhythm Heart sounds: no murmurs GI: GI Palp: Yes Soft to palpation, Yes Tenderness to palpation present (GI) (RUQ), No Guarding due to palpation present (GI) and No Rigid due to palpation Auscultation: normal bowel sounds : General: Yes CVA tenderness on the right Back/Spine/Pelvis: Back: CVA tenderness Skin: General skin exam: normal color Rashes: no rashes Neuro: General: patient oriented x3, moves all extremities and CN's II-XI intact bilaterally Psych: Mental Status: mental status grossly normal Affect: normal affect Course Reevaluation(s) Reevaluation #1: PAtient states his pain is resolving. He still had some mild pain so he was given toradol. I reviewed labs and CT. Urine showed positive nitrates so will given dose of rocephin. I also discussed with patient that he needs to follow up with PCP regarding possible hypertension. Date: 07/14/21 Time: 03:01 Vital Signs Vital signs: Vital Signs Temperature 98.5 F 07/13/21 23:52 Pulse Rate 80 07/13/21 23:52 Respiratory Rate 19 07/13/21 23:52 Blood Pressure 175/98 H 07/13/21 23:52 Pulse Oximetry 99 07/13/21 23:52 Temperature 98.5 F 07/13/21 23:52 Pulse Rate 77 07/14/21 03:21 Respiratory Rate 18 07/14/21 03:21 Blood Pressure 172/95 H 07/14/21 03
[2021-07-14 01:22] VITALS: BP 160/94; PULSE 80; RESP 18; O2SAT 98
[2021-07-14 01:31] VITALS: BP 167/90; PULSE 81; RESP 20; O2SAT 98
--- NOTE | 2021-07-14 01:31 | PC.NURSE ---
Pt to XY at this time.
[2021-07-14 01:36] LABS: Basophils Absolute Auto 0.1 K/mm3 (0.0-0.1); Basophils Percent Auto 1.3 % (0.2-1.2); Eosinophils Absolute Auto 0.6 K/mm3 (0-0.3); Eosinophils Percent Auto 7.1 % (0-4.4); Hematocrit 42.2 % (42.0-52.0); Immature Granulocyte Absolute 0.02 K/mm3 (0.00-0.031); Immature Granulocyte Percent A 0.2 % (0-0.5); Lymphocytes Absolute Auto 2.23 K/mm3 (0.9-3.2); Lymphocytes Percent Auto 25.8 % (18.3-44.2); Mean Corpuscular HGB Conc 33.2 g/dl (32-36); Mean Corpuscular Hemoglobin 30.2 pg (26-34); Mean Corpuscular Volume 90.9 fl (80-100); Mean Platelet Volume 10.7 fl (7.4-10.4); Monocytes Absolute Auto 0.7 K/mm3 (0.1-0.6); Monocytes Percent Auto 8.3 % (2.6-8.5); Neutrophils Absolute Auto 4.9 K/mm3 (1.3-6.7); Neutrophils Percent Auto 57.3 % (45.5-73.1); Platelet Count Result 302 k/mm3 (150-375); Red Blood Count 4.64 M/mm3 (4.6-6.20); Red Cell Distribution Width 13.4 % (11.5-14.5); White Blood Count 8.6 K/mm3 (4.5-10.0)
[2021-07-14] MEDS: SODIUM CHLORIDE 0.9% IV 1,000 ML 999 ML IV CONT (01:44)
[2021-07-14 01:45] LABS: Alanine Aminotransferase 15 U/L (4-50); Albumin Level 4.6 g/dL (3.5-5.1); Alkaline Phosphatase 52 U/L (38-126); Anion Gap 10 mmol/L (8-16); Aspartate Amino Transferase 29 U/L (17-59); Bilirubin,Total 0.3 mg/dL (0.2-1.3); Blood Urea Nitrogen 20 mg/dL (9-20); Calcium 8.9 mg/dL (8.4-10.2); Carbon Dioxide 24 mmol/L (22-30); Chloride 105 mmol/L (98-107); Estimated CRCL calculation 147 ml/min; Estimated Glomerular Filt Rate > 60; Glucose 110 mg/dL (65-110); Lipase 63 U/L (23-300); Potassium 3.7 mmol/L (3.4-5.0); Sodium 139 mmol/L (137-145)
[2021-07-14 02:01] VITALS: BP 167/92; PULSE 83; RESP 20; O2SAT 98
[2021-07-14 02:18] LABS: Add Urine Microscopic? YES; Appearance Urine Clear (Clear); Bilirubin Urine Negative (Negative); Blood Urine Negative (Negative); Color Urine Amber (Yellow); Glucose Urine UA Negative (Negative); Ketones Urine Negative (Negative); Leukocyte Esterase Ur Negative LEU/UL (Negative); Mucus Urine Rare /lpf; Nitrate Urine Positive (Negative); Protein Urine 1+ mg/dL (Negative); Squamous Epithelial Cell Urine Rare /hpf (Few); WBC Urine 0-3 /hpf
[2021-07-14 02:20] LABS: Specific Grav Ur 1.031 (1.001-1.035)
[2021-07-14 02:31] VITALS: BP 166/96; PULSE 83; RESP 17; O2SAT 98
[2021-07-14] MEDS: KETOROLAC 30 MG/ML VIAL (*BKC) IV PUSH (02:53)
[2021-07-14 03:21] VITALS: BP 172/95; PULSE 77; RESP 18; O2SAT 100
== END 2021-07-14 03:21 | disposition home or self-care (01) ==
PROVIDERS: Emergency Provider General Practice; PCP Physician Assistant
DX: N39.0 Urinary tract infection, site not specified (principal)
CPT/HCPCS: 36415; 74018; 74176; 80053; 81001; 83690; 85025; 87086; 87491; 87591; 96365; 96367; 96375; 99284; J0131; J0696; J1885; J7030

== ENCOUNTER 2022-05-13 16:58 | Emergency (ER) | payer OTHER, SELFPAY ==
[2022-05-13 17:28] VITALS: BP 158/100; PULSE 84; RESP 16; TEMP 36.7; O2SAT 99
--- NOTE | 2022-05-13 17:51 | ED.EAR ---
HPI - Ear Problem General Chief complaint: Ear Stated complaint: lt ear pain Time Seen by Provider: 05/13/22 17:45 Source: patient Mode of arrival: ambulatory Limitations: no limitations History of Present Illness HPI Narrative: Patient presents today with a 1 month history of left ear pain with decreased hearing. He has been flushing his ear out frequently, but states today it feels worse. He last flushed his ear out approximately 4 hours ago. Denies any pus drainage or blood drainage from the ear. Denies any URI symptoms Related Data Allergies Allergy/AdvReac Type Severity Reaction Status Date / Time No Known Allergies Allergy Verified 05/13/22 17:31 Review of Systems Review of Systems: CONSTITUTIONAL: Denies body aches, fever, chills, or sweats. EYES: Denies visual changes, redness, or discharge. ENT: Denies rhinorrhea, congestion, sore throat. + left ear pain with decreased hearing CARDIOVASCULAR: Denies chest pain, palpitations, or edema. RESPIRATORY: Denies cough or dyspnea. GASTROINTESTINAL: Denies abdominal pain, nausea, vomiting, or diarrhea. GENITOURINARY: Denies dysuria or hematuria. SKIN: Denies rash, itching, or wounds. MUSCULOSKELETAL: Denies back pain, joint pain, or myalgia. NEUROLOGIC: Denies headache, numbness, tingling, or weakness. PSYCH: Denies depression or anxiety. [facility] Past Medical History Medical History Patient denies medical problems Surgical History Surgical History No pertinent past surgical history Family History Family History Unknown Unknown family medical history Social History Social History Social History: The patient lives with his and 3 children. 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 The patient desires to be a full code. The patient works at [employer]. He is a lifelong nonsmoker and does not use any alcohol marijuana or illicit drugs. Smoking status: Never smoker Alcohol intake: never Substance use: never Gender identity (if verbalized by the patient): Male Spiritual care concerns: No Comments At time of signature, I have reviewed and agree with nursing past medical, surgical, social and family history unless otherwise noted. Please see nursing chart for further information. There is no relevant family history pertinent to the presenting complaint Exam Narrative: GENERAL: Well-appearing, well-nourished, and in no acute distress. HEAD: Normocephalic, atraumatic. EYES: EOMI. No redness or drainage. Conjunctivae normal. ENT: Mucous membranes pink and moist. right TM normal. Left TM occluded by deep wax impaction. Bleeding small abrasion to the 6 o'clock position of the ear canal. NECK: Normal AROM. CHEST: No respiratory distress. EXTREMITIES: Normal range of motion. No edema. SKIN: Warm, dry, no rash. Capillary refill normal. Normal skin turgor. NEURO: No focal deficits. Alert and oriented x3. Gait steady. PSYCH: Normal affect. No signs of depression or anxiety. Course Course Level of Care: Express Care Visit Vital Signs Vital signs: Vital Signs Temperature 98.1 F 05/13/22 17:28 Pulse Rate 84 05/13/22 17:28 Respiratory Rate 16 05/13/22 17:28 Blood Pressure 158/100 H 05/13/22 17:28 Pulse Oximetry 99 05/13/22 17:28 Temperature 98.1 F 05/13/22 17:28 Pulse Rate 84 05/13/22 17:28 Respiratory Rate 16 05/13/22 17:28 Blood Pressure 158/100 H 05/13/22 17:28 Pulse Oximetry 99 05/13/22 17:28 Reviewed. Pt has been instructed to follow up with his PCP regarding his elevated blood pressure today. Medical Decision Making Differential Diagnosis Differential Diagnosis: otitis media, otitis externa, ruptured TM, serous
== END 2022-05-13 18:03 | disposition home or self-care (01) ==
PROVIDERS: Emergency Provider Nurse Practitioner
DX: S00.412A Abrasion of left ear, initial encounter (principal); X58.XXXA Exposure to other specified factors, initial encounter; H61.22 Impacted cerumen, left ear
CPT/HCPCS: 99213; G0463

== ENCOUNTER 2022-10-26 21:48 | Emergency (ER) | payer OTHER, SELFPAY ==
--- NOTE | ~2022-10-26 | XR_ITS ---
EXAMINATION: XR chest 1V portable DATE: 10/27/2022 02:31 INDICATION: Chest pain. Shortness of breath. TECHNIQUE: A single frontal view of the chest was obtained. COMPARISON: Chest single view 02/21/2021, CT abdomen and pelvis 07/14/2021 FINDINGS: The chest demonstrates clear lungs without pneumonia, pleural effusion, or pneumothorax. Th e heart size is normal. IMPRESSION: 1. No acute cardiopulmonary disease. Reviewed, dictated and finalized at location A.
--- NOTE | ~2022-10-26 | XR_ITS ---
EXAMINATION: XR_[id number]_CR DATE: 10/27/2022 02:31 INDICATION: Neck pain. TECHNIQUE: 3 views of cervical spine were obtained. COMPARISON: None. FINDINGS: There is mild kyphosis of cervical spine. Vertebral body heights are normal. There is mildl y decreased disc height at C5-C6. The facet joints are normal. No central canal stenosis or preverteb ral soft tissue swelling. IMPRESSION: 1. Mild spondylosis at C5-C6. Reviewed, dictated and finalized at location A.
[2022-10-26 22:03] VITALS: BP 186/86; PULSE 86; RESP 18; TEMP 36.9; O2SAT 99
--- NOTE | 2022-10-27 01:53 | ECG_ITS ---
Measurements Intervals [place] Rate: 72 P: 34 CO: 203 QRS: 63 QRSD: 71 T: 161 QT: 380 QTc: 418 Interpretive Statements SINUS RHYTHM WITH SINUS ARRHYTHMIA DELAYED PRECORDIAL R/S TRANSITION T WAVE ABNORMALITY IN LAT/HIGH LAT LEADS- CONSIDER ISCHEMIA BASELINE ARTIFACT- I, II ABNORMAL ECG COMPARED TO ECG 02/17/2021 12:45:44 SINUS RHYTHM NOW PRESENT SINUS ARRHYTHMIA NOW PRESENT T WAVE ABNORMALITY NOW PRESENT Electronically Signed On 10-27-2022 8:48:19 CDT by Keyon Natraajan D.O.
[2022-10-27 01:56] VITALS: BP 163/99; PULSE 70; RESP 18; O2SAT 98
[2022-10-27 01:57] VITALS: BP 150/79; PULSE 71; RESP 18; O2SAT 98
--- NOTE | 2022-10-27 01:57 | ED.GENADULT ---
HPI - General Adult General Chief complaint: Neck Pain/Injury Stated complaint: neck and shoulder pain Time Seen by Provider: 10/27/22 01:49 History of Present Illness HPI narrative: Patient 37-year-old gentleman who presents the emergency department with chief complaint of neck pain. Patient reports that for the last 2 weeks he has been having pain in his neck that radiates to his upper back. The patient states the pain is sharp reports that he has had some intermittent chest discomfort with as well and some shortness of breath Related Data Allergies Allergy/AdvReac Type Severity Reaction Status Date / Time No Known Allergies Allergy Verified 10/27/22 01:58 Review of Systems Review of Systems: A 10 system review of systems was completed on the patient and is negative except for what is stated in the HPI. Nursing and ancillary documentation was reviewed. [facility] Past Medical History Medical History Patient denies medical problems Surgical History Surgical History No pertinent past surgical history Family History Family History Unknown Unknown family medical history Social History Social History Social History: The patient lives with his and 3 children. 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 The patient desires to be a full code. The patient works at [employer]. He is a lifelong nonsmoker and does not use any alcohol marijuana or illicit drugs. Smoking status: Never smoker Alcohol intake: never Substance use: never Gender identity (if verbalized by the patient): Male Spiritual care concerns: No Exam Narrative: GENERAL: Well-appearing, well-nourished, and in no acute distress. HEAD: Normocephalic, atraumatic. EYES: PERRLA and EOMI. ENT: Nares clear, no rhinorrhea or epistaxis. Mucous membranes moist. NECK: Supple. Tenderness to the paraspinous muscles in the right side of the neck into the upper back CHEST: Clear to auscultation. No respiratory distress. HEART: Regular rate and rhythm. No murmur heard. Normal peripheral pulses. ABDOMEN: Soft, nontender, nondistended, normal active bowel sounds. EXTREMITIES: Normal range of motion. No edema. SKIN: Warm, dry, no rash. NEURO: No focal deficits. Alert and oriented x3. PSYCH: Normal mood and affect. Course Vital Signs Vital signs: Vital Signs Temperature 36.9 C 10/26/22 22:03 Pulse Rate 86 10/26/22 22:03 Respiratory Rate 18 10/26/22 22:03 Blood Pressure 186/86 H 10/26/22 22:03 Pulse Oximetry 99 10/26/22 22:03 Oxygen Delivery Room Air 10/26/22 22:03 Temperature 36.9 C 10/26/22 22:03 Pulse Rate 71 10/27/22 02:14 Respiratory Rate 18 10/27/22 02:14 Blood Pressure 138/97 H 10/27/22 02:14 Pulse Oximetry 99 10/27/22 02:14 Oxygen Delivery Room Air 10/26/22 22:03 Medical Decision Making [facility] Narrative Medical decision making narrative: Differential diagnosis includes cervical strain, muscle spasm, ACS, dissection, pneumothorax Chest x-ray shows no wide mediastinum no evidence of pneumothorax EKG interpreted by me showed sinus rhythm rate of [address] elevation or ST depression Laboratory studies were obtained which showed a negative BNP and a negative troponin. CBC was within normal limits and CMP was also within normal limits. X-ray of the cervical spine showed no evidence of fracture or significant foraminal narrowing Vital Signs Vital Signs: Vital Signs Temperature 36.9 C 10/26/22 22:03 Pulse Rate 86 10/26/22 22:03 Respiratory Rate 18 10/26/22 22:03 Blood Pressure 186/86 H 10/26/22 22:03 Pulse Oximetry 99 10/26/22 22:03 Oxygen Delivery Room Air 10/26/22 22:03 Temper
[2022-10-27] MEDS: ASPIRIN 81 MG CHEWABLE TABLET 324 MG PO (02:13)
[2022-10-27] MEDS: ORPHENADRINE CITRATE 100 MG TABLET.ER PO (02:13)
[2022-10-27 02:14] VITALS: BP 138/97; PULSE 71; RESP 18; O2SAT 99
--- NOTE | 2022-10-27 03:01 | PC.NURSE ---
Pt refused IV, Dr. Brothers notified. Toradol not administered, pending pain reassessment after aspirin and muscle relaxer.
[2022-10-27 03:03] LABS: Basophils Absolute Auto 0.1 K/mm3 (0.0-0.1); Basophils Percent Auto 0.9 % (0.2-1.2); Eosinophils Absolute Auto 0.5 K/mm3 (0-0.3); Eosinophils Percent Auto 5.6 % (0-4.4); Hematocrit 42.4 % (42.0-52.0); Hemoglobin 13.7 g/dL (14.0-18.0); Immature Granulocyte Absolute 0.02 K/mm3 (0.00-0.031); Immature Granulocyte Percent A 0.2 % (0-0.5); Lymphocytes Absolute Auto 2.45 K/mm3 (0.9-3.2); Lymphocytes Percent Auto 27.6 % (18.3-44.2); Mean Corpuscular HGB Conc 32.3 g/dl (32-36); Mean Corpuscular Hemoglobin 29.5 pg (26-34); Mean Corpuscular Volume 91.2 fl (80-100); Mean Platelet Volume 10.5 fl (7.4-10.4); Monocytes Absolute Auto 0.7 K/mm3 (0.1-0.6); Neutrophils Absolute Auto 5.1 K/mm3 (1.3-6.7); Neutrophils Percent Auto 57.7 % (45.5-73.1); Platelet Count Result 291 k/mm3 (150-375); Red Blood Count 4.65 M/mm3 (4.6-6.20); Red Cell Distribution Width 13.5 % (11.5-14.5); White Blood Count 8.9 K/mm3 (4.5-10.0)
[2022-10-27 03:14] LABS: Alanine Aminotransferase 29 U/L (6-50); Albumin Level 4.6 g/dL (3.5-5.1); Alkaline Phosphatase 54 U/L (38-126); Anion Gap 9 mmol/L (8-16); Aspartate Amino Transferase 38 U/L (17-59); Bilirubin,Total 0.5 mg/dL (0.2-1.3); Blood Urea Nitrogen 14 mg/dL (9-20); Calcium 8.7 mg/dL (8.4-10.2); Carbon Dioxide 25 mmol/L (22-30); Chloride 103 mmol/L (98-107); Estimated CRCL calculation 142 ml/min; Estimated Glomerular Filt Rate > 60; Glucose 103 mg/dL (65-110); Potassium 3.8 mmol/L (3.4-5.0); Sodium 137 mmol/L (137-145)
[2022-10-27 03:25] LABS: NT Pro B Type Natriuretic Pept < 20 pg/mL (19.9-100); Troponin I < 0.012 ng/mL (0.000-0.034)
== END 2022-10-27 03:54 | disposition home or self-care (01) ==
PROVIDERS: Emergency Provider Emergency Medicine
DX: S16.1XXA Strain of muscle, fascia and tendon at neck level, initial encounter (principal); R94.31 Abnormal electrocardiogram [ECG] [EKG]; X58.XXXA Exposure to other specified factors, initial encounter
CPT/HCPCS: 36415; 71045; 72040; 80053; 83880; 84484; 85025; 93005; 99284; A9270